=== PATIENT | female | born 1980 | race Caucasian/White ===

== ENCOUNTER 2020-12-25 12:41 | Outpatient (CLI) | payer BC | END 2020-12-25 12:42 | disposition home or self-care (01) | LOC: DTY/OP 12:41 | PROVIDERS: ATTEND Surgery | DX: E66.01 Morbid (severe) obesity due to excess calories (principal); Z68.35 Body mass index [BMI] 35.0-35.9, adult | CPT/HCPCS: 97802 ==

== ENCOUNTER 2021-02-01 08:00 | Inpatient (IN) | payer OTHER ==
[2021-02-01 10:50] VITALS: BMI 34.7
[2021-02-06] MEDS ORDERED: Bupivacaine 0.25% HCL 30 ML VIAL ONE (06:52)
[2021-02-06] MEDS ORDERED: Lidocaine 1% w/Epinephrine 1:100K 20 ML VIAL ONE (06:52)
[2021-02-06] MEDS ORDERED: Fentanyl 250 MCG/5 ML VIAL ONE (07:05)
[2021-02-06] MEDS ORDERED: SUGAMMADEX SODIUM 200 MG/2 ML VIAL ONE (07:05)
[2021-02-06] MEDS ORDERED: Midazolam HCl 2 mg/2 ml Vial ONE (07:18)
[2021-02-06] MEDS ORDERED: PHENYLEPHRINE-NS 100 MCG/ML 10 ML SYRINGE ONE (07:38)
[2021-02-06] MEDS ORDERED: Glycopyrrolate 0.2 MG/ML 5 ML SYRINGE ONE (07:38)
[2021-02-06] MEDS ORDERED: Lidocaine 1% PF 5 ML VIAL ONE (07:38)
[2021-02-06] MEDS ORDERED: Dexamethasone 20 MG/5 ML VIAL ONE (07:38)
[2021-02-06] MEDS ORDERED: Ketorolac Tromethamine 30 MG/ML VIAL ONE (07:38)
[2021-02-06] MEDS ORDERED: Ondansetron PF 4 MG/2 ML Vial ONE (07:38)
[2021-02-06] MEDS ORDERED: Rocuronium Bromide 10 MG/ML (10ML VIAL) ONE (07:38)
[2021-02-06] MEDS ORDERED: PROPOFOL 200 MG/20 ML VIAL ONE (07:38)
[2021-02-06] MEDS ORDERED: Succinylcholine 200 MG/10 ml SYRINGE FS ONE (07:38)
[2021-02-06] MEDS ORDERED: Promethazine HCl 25 MG/ML VIAL IVPB PRN (08:12)
[2021-02-06] MEDS ORDERED: Meperidine HCl/PF 25 MG/ML VIAL SLOW IVP PRN (08:12)
[2021-02-06] MEDS ORDERED: Promethazine HCl 25 MG/ML VIAL IM PRN ×3 (08:12→10:37)
[2021-02-06] MEDS ORDERED: Ondansetron HCl/PF 4 MG/2 ML Vial IVP PRN (08:12)
[2021-02-06] MEDS ORDERED: diphenhydrAMINE 50 MG/ML VIAL IM PRN (09:12)
[2021-02-06] MEDS ORDERED: Ondansetron PF 4 MG/2 ML Vial IVP PRN ×2 (09:12→10:37)
[2021-02-06] MEDS ORDERED: diphenhydrAMINE 50 MG/ML VIAL IVP PRN ×2 (09:12→10:37)
[2021-02-06] MEDS ORDERED: diphenhydrAMINE 25 MG CAP PO PRN (09:12)
[2021-02-06] MEDS ORDERED: Naloxone HCl 0.4 mg/ml Vial IV PRN (09:12)
[2021-02-06] MEDS ORDERED: fentaNYL Citrate/PF 2,000 MCG in Sodium Chloride 0.9% 60 ML IV PRN (09:12)
[2021-02-06] MEDS ORDERED: Zolpidem Tartrate 5 MG TAB PO PRN (09:12)
[2021-02-06] MEDS ORDERED: Communication Order-Pharmacy FS SCH (09:15)
[2021-02-06] MEDS ORDERED: Fentanyl 100 MCG/2 ML VIAL ONE (09:37)
[2021-02-06] MEDS ORDERED: hydrALAZINE 20 MG/ML VIAL SLOW IVP PRN (10:37)
[2021-02-06] MEDS ORDERED: Hydrocodone-Acetamin 15 ML UDCUP PO PRN (10:37)
[2021-02-06] MEDS ORDERED: Dextrose 5% in Water 1,000 ML IV PRN (10:37)
[2021-02-06] MEDS ORDERED: SUMAtriptan Succinate 50 MG TAB PO PRN (10:37)
[2021-02-06] MEDS ORDERED: Dextrose 50% Abboject 50 ML SYRINGE SLOW IVP PRN (10:37)
[2021-02-06] MEDS: D5 1/2 NS w/20 mEq KCL 1,000 ML IV SCH ×2 (15:52→21:06)
[2021-02-06] MEDS: Pantoprazole 40 MG VIAL IVP SCH (15:52)
[2021-02-06] MEDS ORDERED: Enoxaparin Sodium 40 MG/0.4 ML SYRINGE SC SCH (21:00)
[2021-02-06] MEDS ORDERED: Amitriptyline HCl 10 MG TAB PO SCH (21:00)
[2021-02-06] MEDS ORDERED: Montelukast Sodium 10 mg Tablet PO SCH (21:00)
[2021-02-06] MEDS: Topiramate 25 MG TAB PO SCH (22:01)
[2021-02-07 05:56] LABS: #Lymphocytes 2.1 thou/uL (1.20-3.40); #Monocytes 0.8 thou/uL (0.11-0.59); #Neutrophils 6.3 thou/uL (1.40-6.50); %Basophils 0.3 % (0.0-1.0); %Eosinophils 0.4 % (0.0-10.0); %Lymphocytes 22.6 % (21.0-51.0); %Neutrophils 67.7 % (42.0-75.0); Mean Corpuscular HGB CONC 32.6 g/dL (32.0-36.0); Mean Corpuscular Hemoglobin 28.8 pg (27.0-31.0); Mean Corpuscular Volume 88.3 fL (78.0-98.0); Mean Platelet Volume 7.5 fL (7.4-10.4); Platelet Count 226 thou/uL (130-400); RBC Distribution Width 12.4 % (11.5-14.5); Red Blood Cell (RBC) Count 4.51 mill/uL (4.20-5.40); White Blood Cell (WBC) Count 9.3 thou/uL (4.8-10.8)
[2021-02-07] MEDS: D5 1/2 NS w/20 mEq KCL 1,000 ML IV SCH ×2 (06:15→10:58)
[2021-02-07 06:19] LABS: Anion Gap 13 mmol/L (10-20); BUN (Urea Nitrogen) 6 mg/dL (7.0-18.7); Calc. Creatinine Clearance 135 mL/min (70-130); Carbon Dioxide 15 mmol/L (22-29); Chloride 113 mmol/L (98-107); Glucose 99 mg/dL (70-105); Potassium 3.4 mmol/L (3.5-5.1); Sodium 138 mmol/L (136-145)
[2021-02-07] MEDS: Topiramate 25 MG TAB PO SCH (08:32)
[2021-02-07] MEDS: Pantoprazole 40 MG VIAL IVP SCH (08:32)
[2021-02-07] MEDS: Hydrocodone-Acetamin 15 ML UDCUP PO PRN ×2 (08:32→12:31)
[2021-02-07 11:54] VITALS: BP 125/79; TEMP 98.4
== END 2021-02-07 17:25 | disposition home or self-care (01) | DRG 621 ==
LOC: SURG A 02-06 05:54 → EDSTATUS 02-06 08:00 → SURG B 02-06 10:21
PROVIDERS: ADMIT Surgery; ATTEND Surgery
PROC: 0DB64Z3 Excision of Stomach, Percutaneous Endoscopic Approach, Vertical (ICD-10-PCS; principal; 2021-02-06)
PROC: 8E0W4CZ Robotic Assisted Procedure of Trunk Region, Percutaneous Endoscopic Approach (ICD-10-PCS; 2021-02-06)
PROC: 0DJ08ZZ Inspection of Upper Intestinal Tract, Via Natural or Artificial Opening Endoscopic (ICD-10-PCS; 2021-02-06)
DX: E66.01 Morbid (severe) obesity due to excess calories (principal); F90.2 Attention-deficit hyperactivity disorder, combined type; G43.909 Migraine, unspecified, not intractable, without status migrainosus; J30.2 Other seasonal allergic rhinitis; Z68.35 Body mass index [BMI] 35.0-35.9, adult; Z79.899 Other long term (current) drug therapy
CPT/HCPCS: 36415; 80048; 85025; 88307; C9113; J0690; J1100; J1650; J1885; J2250; J2405; J2704; J3010; J3480; S0020